=== PATIENT | female | born 2000 | race Caucasian/White ===

== ENCOUNTER 2023-01-14 22:59 | Outpatient (CLI) | payer OTHER ==
[2023-01-14 23:29] VITALS: BP 116/66
--- NOTE | 2023-01-15 00:23 | PROVIDER PROGRESS NOTE ---
- HPI Chief Complaint: Vaginal bleeding Current : Vital Signs Temperature 97.9 F 01/14/23 23:24 Heart Rate 76 01/14/23 23:24 Respiratory Rate 18 01/14/23 23:24 Blood Pressure 116/66 01/14/23 23:24 Temperature 97.9 F 01/14/23 23:24 Heart Rate 76 01/14/23 23:24 Respiratory Rate 18 01/14/23 23:24 Blood Pressure 116/66 01/14/23 23:24 O2 Saturation If not protocol: Oxygen Flow, liters/minute - Procedures OB Procedure Performed: NST NST Procedure: EFM: 150s, moderate variability, no decelerations [place]: no contractions Early for NST but reassuring/Cat 1 Performed and read 01/14/23 Service Date of procedure: 01/14/23 - Plan Plan: 22yo at 24.4w presenting for light vaginal bleeding. She reports having an appointment with her director of community center today and vaginal swab was collected. Blood noted on swab after collection. Uncomplicated . care with midwifery. NKDA Med: vit Med/Surg: denies Fam: noncontributory Social: AD USN, denies donna VSS Gen: NAD CV: Regular rate Resp: Breathing unlabored Abd: soft, nt : Speculum exam- no bleeding per os, white discharge noted, no blood in vaginal vault. Gauze applied to external vagina and pink discharge noted. Bleeding likely external vagina/superficial Ext: nt 22yo at 24.4w with vaginal bleeding second trimester - status reassuring with monitoring - Reassured patient, bleeding seems to be superficial or external vagina, possible trauma from swab collection earlier today. No bleeding in vaginal vault or at external os. - Follow up with midwifery as scheduled
[2023-01-15 00:29] LABS: BILIRUBIN,URINE NEGATIVE (NEGATIVE); GLUCOSE, URINE (UA) NEGATIVE (NEGATIVE); KETONES,URINE (UA) NEGATIVE (NEGATIVE); LEUKOCYTE ESTERASE, URINE SMALL (NEGATIVE); NITRITE,URINE NEGATIVE (NEGATIVE); OCCULT BLOOD,URINE LARGE (NEGATIVE); PH,URINE 6.5 PH (5.0-7.5); PROTEIN,URINE NEGATIVE (NEGATIVE); UROBILINOGEN,URINE 0.2 (NORMAL) E.U./dL (NORMAL)
[2023-01-15 00:33] LABS: CLARITY,URINE HAZY (CLEAR)
[2023-01-15 00:35] LABS: AMORPHOUS SEDIMENT,UR Few /LPF; BACTERIA,URINE Few /HPF (None Seen); RBC,URINE 0-5 /HPF (0-5); SQUAMOUS EPITHELIAL CELL,UR MOD Squamous (<= Few); WBC,URINE 0-3 /HPF (0-5)
== END 2023-01-15 00:27 | disposition home or self-care (01) ==
LOC: WFO 22:59 → FBP 23:08 → WFO 01-15 00:27
PROVIDERS: ATTEND Obstetrics & Gynecology
DX: O46.92 Antepartum hemorrhage, unspecified, second trimester (principal); Z3A.24 24 weeks gestation of pregnancy
CPT/HCPCS: 81001; 81003; 87086; 99213